=== PATIENT | male | born 1950 | race Caucasian/White ===

== ENCOUNTER 2017-02-13 19:46 | Inpatient (IN) | payer OTHER ==
[~2017-02-13] VITALS: Ht 172.7 cm; Wt 120.2 kg
--- NOTE | ~2017-02-13 | EKG ---
[place] [address] [facility] [place] [address] ELECTROCARDIOGRAM REPORT Name: JADE HARRIS Room #: 303-P ADM IN M.R.#: [id number] Admission: 02/13/17 Attend Phys: Sim Castaneda DO Discharge: Date of : 50 Report #: [id number] THIS REPORT FOR: //name// [facility] ED Test Date: 2017-02-13 Test Time: 19:47:30 Pat Name: JADE HARRIS Department: Room: [facility] Gender: M Time Study Engineer: KKODJOVI : 1950 Requested By: Juan Carlos Palma Order Number: [id number] MD: Andrey Boucher Measurements Intervals [place] Rate: 97 P: 42 IA: 124 QRS: 108 QRSD: 142 T: 26 QT: 387 QTc: 492 Interpretive Statements Probable Sinus rhythm. Baseline artifact limits assessment Rightward axis Probable RVH Compared to ECG 01/17/2015 18:02:47 No significant change was found Electronically Signed On 02-17-2017 9:14:29 CDT by Andrey Boucher [email or web address] <ELECTRONICALLY SIGNED> By: Andrey Boucher MD, [facility] 02/17/1714 46 46 Andrey Boucher MD, [facility] /EPI
[~2017-02-13 19:46] MED LIST: ASPIR-LOW81 MG PO; AUGMENTIN 875875 MG PO; BACTRIM DS TAB1 EACH PO; BACTROBAN CREAM30 G1 TOP; CLORPACTIN WCS-92 GM IRRIG; COLACE100 MG PO; COZAAR 50 MG TA50 MG PO; CYCLOBENZAPRINE5 MG PO; DAILY VITE1 EACH PO; DILAUDID1 MG/1 ML IV PUSH; DIPHENHYDRAM50 MG/M2 IV PUSH; DOXYCYCLINE 10100 MG PO; DULCOLAX5 MG PO; ENOXAPARIN40 MG/0.1 SUBQ; FENTANYL PA25 MCG/HR TRANSDERM; FENTANYL PATCH75 MCG TRANSDERM; FLOMAX0.4 MG PO; FLONASE 0.05%50 MCG NASAL; GLUCOPHAGE1000 MG PO; GLYBURIDE 5 MG T5 M1 PO; INDOMETHACIN 5050 M1 PO; INVOKANA300 MG PO; LIDODERM 5%1 PATC1 TRANSDERM; LIPITOR10 MG PO; LOPRESSOR25 PO; MODAFINIL100 MG PO; MODAFINIL200 MG PO; MYRBETRIQ50 MG PO; MYSOLINE50 MG PO; NEURONTIN 300300 M1 PO; NORCO 10-325 T1 EACH PO; NOVOLOG100 UNIT/1 SUBQ; ONDANSETRON HCL4 M2 IV; ONGLYZA5 MG PO; PIPERACIL-TA3.375 G1 IVPB; PROSCAR 5MG TABL5 MG PO; PROTONIX 440 MG/VIA1 IV; PROZAC20 M1 PO; REGLAN 5 MG TAB5 MG IV; RISPERDAL 3 MG T3 M1 PO; TOVIAZ4 MG PO; TRADJENTA5 MG PO; UNICOMPLEX M TA1 TA1 PO; VALACYCLOVIR500 MG PO; VENLAFAXIN75 MG/1 T1 PO; VIAGRA50 MG PO; VITAMINC500 PO; XANAX 0.5 MG0.5 MG PO; ZOCOR 10 MG TAB10 MG PO
[2017-02-13 19:47] VITALS: BP 126/65
[2017-02-13 20:20] LABS: HEMATOCRIT 38.9 % (42.0-52.0); HEMOGLOBIN 12.7 gm/dL (14.0-18.0); MCH 27.6 pg (26.0-34.0); MCHC 32.6 g/dL (28.0-37.0); MCV 84.5 fL (80.0-100.0); PLATELET COUNT 302 thou/uL (150-400); RBC 4.61 mil/uL (4.50-6.00); RDW 15.2 % (10.5-14.5); WBC 12.7 thou/uL (4.0-11.0)
[2017-02-13 20:21] LABS: MANUAL DIFF YES
[2017-02-13 20:29] LABS: ANION GAP 9 mmol/L (7-16); BUN 19 mg/dL (7-18); CALCIUM 9.5 mg/dL (8.5-10.1); CHLORIDE 102 mmol/L (98-107); CO2 28 mmol/L (21-32); GLUCOSE 131 mg/dL (74-106); SODIUM 139 mmol/L (136-145)
[2017-02-13 20:31] LABS: POTASSIUM 4.7 mmol/L (3.5-5.1)
[2017-02-13 20:41] LABS: ABSOLUTE NEUTROPHILS 9.9 thou/uL (1.4-8.2); ANISOCYTOSIS 1+; TOTAL CELL COUNT 100
[2017-02-13 20:42] LABS: POLYCHROMASIA OCCASIONAL
[2017-02-13 20:44] LABS: ALBUMIN 3.4 g/dL (3.4-5.0); ALKALINE PHOSPHATASE 96 U/L (46-116); SGOT 348 U/L (15-37); SGPT 133 U/L (30-65); TOTAL BILIRUBIN 0.5 mg/dL (<0.1-1.0); TROPONIN-I < 0.04 ng/mL (<0.04-0.07)
[2017-02-13] MEDS ORDERED: LOPRESSOR25 PO (21:12)
[2017-02-13] MEDS ORDERED: FENTANYL 1100 MCG/HR TRANSDERM (21:13)
[2017-02-13] MEDS ORDERED: DICLOFENAC SODI75 MG PO (21:14)
[2017-02-13] MEDS ORDERED: NUVIGIL200 MG PO (21:14)
[2017-02-13 21:17] LABS: ACETAMINOPHEN < 2 ug/mL (10-30); SALICYLATE < 2.8 mg/dL (2.8-20.0)
[2017-02-13] MEDS ORDERED: PROTONIX40 M2 PO (21:26)
[2017-02-13] MEDS ORDERED: GLUCOTROL5 MG PO (21:27)
[2017-02-13 21:55] LABS: ABG SAMPLE TYPE VENOUS; BE(vivo) -0.1 mmol/L (-2 to +3); HCO3 24.7 mmol/L (22.0-26.0); LACTATE 1.67 mmol/L (0.5-2.0); O2(CT) 14.6 mL/dL (15.0-23.0); O2Hb VENOUS 80.6 (65.0-85.0); PCO2 VENOUS 40.7 mmHg (41.0-51.0); PO2 VENOUS 47.1 mmHg (35.0-45.0); STICK SITE LINE; sO2 VENOUS 83.1 % (65.0-85.0)
[2017-02-13 22:37] LABS: URINE BILIRUBIN NEGATIVE (Negative); URINE BLOOD 3+ (Negative); URINE COLOR YELLOW; URINE GLUCOSE-RANDOM* 3+ (Negative); URINE KETONES TRACE (Negative); URINE NITRITE NEGATIVE (Negative); URINE PROTEIN (DIPSTICK) 1+ (Negative); URINE UROBILINOGEN 0.2 E.U./dl (0.2-1.0)
[2017-02-13 22:45] LABS: AMP/METHAMP Negative (Negative); BARBITURATES POSITIVE (Negative); BENZODIAZEPINES Negative (Negative); CASTS None Seen /LPF (None Seen); COCAINE Negative (Negative); METHADONE Negative (Negative); OPIATES Negative (Negative); PCP Negative (Negative); SQUAMOUS None Seen /LPF (0-3); THC Negative (Negative)
[2017-02-13 22:46] LABS: BACTERIA 1-9 Few /HPF (None Seen); CRYSTALS None Seen /LPF (None Seen); URINE RBC 3-10 Few /HPF (0-2); URINE WBC 0-5 Rare /HPF (0-5)
[2017-02-13 23:04] VITALS: BP 133/59
[2017-02-14 04:15] VITALS: BP 138/67
[2017-02-14 07:02] LABS: ALBUMIN 2.9 g/dL (3.4-5.0); CALCIUM 8.5 mg/dL (8.5-10.1); CREATININE 0.9 mg/dL (0.7-1.3); TOTAL BILIRUBIN 0.4 mg/dL (<0.1-1.0); TOTAL PROTEIN 6.1 g/dL (6.4-8.2)
[2017-02-14 07:05] LABS: POTASSIUM 3.5 mmol/L (3.5-5.1)
[2017-02-14 07:48] VITALS: BP 151/63
[2017-02-14 15:53] VITALS: BP 154/88
[2017-02-14 19:30] VITALS: BP 137/60
[2017-02-14 23:24] VITALS: BP 130/64
[2017-02-15 03:29] VITALS: BP 127/66
[2017-02-15 06:05] LABS: ALBUMIN 2.9 g/dL (3.4-5.0); CALCIUM 8.7 mg/dL (8.5-10.1); CREATININE 0.8 mg/dL (0.7-1.3); POTASSIUM 3.8 mmol/L (3.5-5.1); TOTAL BILIRUBIN 0.3 mg/dL (<0.1-1.0); TOTAL PROTEIN 6.1 g/dL (6.4-8.2)
[2017-02-15 07:35] VITALS: BP 155/77
[2017-02-15 15:49] VITALS: BP 152/77
[2017-02-15 18:06] LABS: HEPATITIS C VIRUS AB <0.1 (0.0-0.9)
[2017-02-15 19:28] VITALS: BP 155/74
[2017-02-16 05:10] VITALS: BP 172/82
[2017-02-16 06:49] LABS: ALBUMIN 2.9 g/dL (3.4-5.0); CALCIUM 8.3 mg/dL (8.5-10.1); CREATININE 0.8 mg/dL (0.7-1.3); POTASSIUM 3.8 mmol/L (3.5-5.1); TOTAL BILIRUBIN 0.2 mg/dL (<0.1-1.0); TOTAL PROTEIN 6.2 g/dL (6.4-8.2)
[2017-02-16 08:08] VITALS: BP 141/75
[2017-02-16 15:44] VITALS: BP 149/78
[2017-02-16 19:28] VITALS: BP 165/81
[2017-02-17 04:13] LABS: GLYCOHEMOGLOBIN (HGB A1C) 5.9 % (4.8-5.6)
[2017-02-17 04:53] VITALS: BP 165/88
[2017-02-17 05:02] LABS: ABSOLUTE NEUTROPHILS 5.4 thou/uL (1.4-8.2); EOSINOPHILS 6.5 % (0.0-3.0); HEMATOCRIT 34.9 % (42.0-52.0); HEMOGLOBIN 11.6 gm/dL (14.0-18.0); LYMPHOCYTES 17.5 % (24.0-44.0); MCH 28.1 pg (26.0-34.0); MCHC 33.1 g/dL (28.0-37.0); MCV 84.8 fL (80.0-100.0); MONOCYTES 9.4 % (1.0-8.0); PLATELET COUNT 269 thou/uL (150-400); POLYS 65.6 % (36.0-66.0); RBC 4.12 mil/uL (4.50-6.00); WBC 8.3 thou/uL (4.0-11.0)
[2017-02-17 05:05] LABS: MANUAL DIFF NO
[2017-02-17 05:31] LABS: CALCIUM 8.9 mg/dL (8.5-10.1); CREATININE 0.7 mg/dL (0.7-1.3); MAGNESIUM 1.7 mg/dL (1.8-2.4); TOTAL BILIRUBIN 0.3 mg/dL (<0.1-1.0); TOTAL PROTEIN 6.2 g/dL (6.4-8.2)
[2017-02-17 07:30] VITALS: BP 134/84
[2017-02-17 11:01] VITALS: BP 134/84
== END 2017-02-17 12:27 | disposition home or self-care (01) | DRG 558 ==
LOC: ER 19:46 → 3N 22:14 → EROBS 22:14 → 3N 22:54 → EROBS 22:54 → 3N 22:57
PROVIDERS: Emergency Medicine; Internal Medicine; Internal Medicine Endocrinology, Diabetes & Metabolism; Nurse Practitioner Acute Care
DX: M62.82 Rhabdomyolysis (principal); E11.9 Type 2 diabetes mellitus without complications; I10 Essential (primary) hypertension; I25.10 Atherosclerotic heart disease of native coronary artery without angina pectoris; R74.0 Nonspecific elevation of levels of transaminase and lactic acid dehydrogenase [LDH]; F41.9 Anxiety disorder, unspecified; F32.9 Major depressive disorder, single episode, unspecified; G89.29 Other chronic pain; M54.9 Dorsalgia, unspecified; Z95.1 Presence of aortocoronary bypass graft; Z79.899 Other long term (current) drug therapy; Z88.8 Allergy status to other drugs, medicaments and biological substances; Z90.49 Acquired absence of other specified parts of digestive tract; Z82.49 Family history of ischemic heart disease and other diseases of the circulatory system; Z80.9 Family history of malignant neoplasm, unspecified
CPT/HCPCS: 10096

== ENCOUNTER 2017-02-28 17:52 | Inpatient (IN) | payer OTHER ==
[~2017-02-28] VITALS: Ht 172.7 cm; Wt 122.5 kg
[~2017-02-28 17:52] MED LIST changes: +DICLOFENAC SODI75 MG PO; +FENTANYL 1100 MCG/HR TRANSDERM; +GLUCOTROL5 MG PO; +NUVIGIL200 MG PO; +PROTONIX40 M2 PO
[2017-02-28 17:54] VITALS: BP 123/65
[2017-02-28 18:35] LABS: ABSOLUTE NEUTROPHILS 11.4 thou/uL (1.4-8.2); BASOPHILS 0.9 % (0.0-2.0); HEMATOCRIT 38.5 % (42.0-52.0); HEMOGLOBIN 12.7 gm/dL (14.0-18.0); LYMPHOCYTES 9.6 % (24.0-44.0); MCH 27.7 pg (26.0-34.0); MCHC 32.8 g/dL (28.0-37.0); MCV 84.2 fL (80.0-100.0); MONOCYTES 9.5 % (1.0-8.0); PLATELET COUNT 374 thou/uL (150-400); RBC 4.57 mil/uL (4.50-6.00); RDW 15.6 % (10.5-14.5); WBC 14.4 thou/uL (4.0-11.0)
[2017-02-28 18:36] LABS: MANUAL DIFF NO
[2017-02-28 18:42] LABS: CALCIUM 9.1 mg/dL (8.5-10.1); CREATININE 1.2 mg/dL (0.7-1.3); POTASSIUM 4.2 mmol/L (3.5-5.1)
[2017-02-28 19:46] LABS: URINE BILIRUBIN NEGATIVE (Negative); URINE BLOOD 1+ (Negative); URINE COLOR YELLOW; URINE GLUCOSE-RANDOM* 3+ (Negative); URINE KETONES NEGATIVE (Negative); URINE LEUKOCYTES-REFLEX NEGATIVE (Negative); URINE PROTEIN (DIPSTICK) NEGATIVE (Negative); URINE SPECIFIC GRAVITY 1.015 (1.003-1.035); URINE UROBILINOGEN 0.2 E.U./dl (0.2-1.0)
[2017-02-28 19:59] LABS: SQUAMOUS None Seen /LPF (0-3)
[2017-02-28 20:00] LABS: CASTS None Seen /LPF (None Seen); CRYSTALS None Seen /LPF (None Seen); URINE RBC 0-2 Rare /HPF (0-2); URINE WBC-REFLEX 0-5 Rare /HPF (0-5)
[2017-02-28 22:48] VITALS: BP 171/81
[2017-02-28 22:51] VITALS: BP 171/81
[2017-03-01 03:35] VITALS: BP 139/70
[2017-03-01 07:47] LABS: ALBUMIN 3.2 g/dL (3.4-5.0); ALKALINE PHOSPHATASE 97 U/L (46-116); DIRECT BILIRUBIN 0.1 mg/dL (<0.1-0.3); MAGNESIUM 1.8 mg/dL (1.8-2.4); SGOT 125 U/L (15-37); SGPT 95 U/L (30-65); TOTAL BILIRUBIN 0.6 mg/dL (<0.1-1.0); TROPONIN-I < 0.04 ng/mL (<0.04-0.07)
[2017-03-01 08:53] VITALS: BP 146/74
[2017-03-01 17:29] VITALS: BP 128/53
[2017-03-01 19:12] VITALS: BP 129/66
[2017-03-02 03:40] VITALS: BP 127/70
[2017-03-02 05:48] LABS: ABSOLUTE NEUTROPHILS 6.8 thou/uL (1.4-8.2); BASOPHILS 0.6 % (0.0-2.0); EOSINOPHILS 3.7 % (0.0-3.0); HEMATOCRIT 36.6 % (42.0-52.0); HEMOGLOBIN 11.6 gm/dL (14.0-18.0); LYMPHOCYTES 16.8 % (24.0-44.0); MCH 27.1 pg (26.0-34.0); MCHC 31.8 g/dL (28.0-37.0); MCV 85.2 fL (80.0-100.0); MONOCYTES 11.8 % (1.0-8.0); PLATELET COUNT 359 thou/uL (150-400); POLYS 67.1 % (36.0-66.0); RBC 4.29 mil/uL (4.50-6.00); RDW 15.4 % (10.5-14.5); WBC 10.1 thou/uL (4.0-11.0)
[2017-03-02 05:51] LABS: MANUAL DIFF NO
[2017-03-02 05:52] LABS: CALCIUM 8.7 mg/dL (8.5-10.1)
[2017-03-02 07:35] VITALS: BP 134/64
[2017-03-02 15:30] VITALS: BP 127/74
[2017-03-02 19:05] VITALS: BP 130/70
[2017-03-03 04:24] LABS: EOSINOPHILS 5.1 % (0.0-3.0); HEMOGLOBIN 11.5 gm/dL (14.0-18.0); LYMPHOCYTES 21.9 % (24.0-44.0); MCH 28.5 pg (26.0-34.0); MCHC 32.9 g/dL (28.0-37.0); MCV 86.5 fL (80.0-100.0); PLATELET COUNT 320 thou/uL (150-400); RBC 4.05 mil/uL (4.50-6.00); RDW 15.6 % (10.5-14.5); WBC 8.1 thou/uL (4.0-11.0)
[2017-03-03 04:30] VITALS: BP 120/64
[2017-03-03 04:33] LABS: CREATININE 0.9 mg/dL (0.7-1.3); POTASSIUM 4.4 mmol/L (3.5-5.1)
[2017-03-03 04:34] LABS: MANUAL DIFF NO
[2017-03-03 08:44] VITALS: BP 147/90
[2017-03-03 18:21] VITALS: BP 106/54
[2017-03-03 20:00] VITALS: BP 124/59
[2017-03-04 04:00] VITALS: BP 139/63
[2017-03-04 04:53] LABS: ABSOLUTE NEUTROPHILS 5.2 thou/uL (1.4-8.2); BASOPHILS 0.8 % (0.0-2.0); EOSINOPHILS 4.9 % (0.0-3.0); HEMATOCRIT 33.9 % (42.0-52.0); HEMOGLOBIN 11.1 gm/dL (14.0-18.0); LYMPHOCYTES 18.5 % (24.0-44.0); MCH 28.1 pg (26.0-34.0); MCHC 32.9 g/dL (28.0-37.0); MCV 85.4 fL (80.0-100.0); MONOCYTES 10.3 % (1.0-8.0); PLATELET COUNT 315 thou/uL (150-400); POLYS 65.5 % (36.0-66.0); RBC 3.97 mil/uL (4.50-6.00); RDW 15.3 % (10.5-14.5)
[2017-03-04 04:57] LABS: MANUAL DIFF NO
[2017-03-04 04:59] LABS: CALCIUM 8.5 mg/dL (8.5-10.1); CREATININE 1.2 mg/dL (0.7-1.3); POTASSIUM 4.6 mmol/L (3.5-5.1)
[2017-03-04 08:00] VITALS: BP 144/71
[2017-03-04] MEDS ORDERED: MACROBID 100 M100 M2 PO (08:41)
[2017-03-04 16:00] VITALS: BP 124/55
[2017-03-04 19:35] VITALS: BP 121/58
[2017-03-05 04:11] VITALS: BP 136/60
[2017-03-05 08:38] VITALS: BP 118/62
== END 2017-03-05 11:15 | DRG 871 ==
LOC: ER 17:52 → 4N 21:49 → EROBS 21:49 → 4N 23:21 → 4S 03-03 11:20
PROVIDERS: Emergency Medicine; Family Medicine; Nurse Practitioner Acute Care
DX: A41.9 Sepsis, unspecified organism (principal); J18.9 Pneumonia, unspecified organism; J96.20 Acute and chronic respiratory failure, unspecified whether with hypoxia or hypercapnia; L03.116 Cellulitis of left lower limb; L03.115 Cellulitis of right lower limb; N39.0 Urinary tract infection, site not specified; E11.9 Type 2 diabetes mellitus without complications; I10 Essential (primary) hypertension; G89.29 Other chronic pain; M54.9 Dorsalgia, unspecified; R23.0 Cyanosis; I25.10 Atherosclerotic heart disease of native coronary artery without angina pectoris; Z95.1 Presence of aortocoronary bypass graft; Z88.6 Allergy status to analgesic agent; Z82.49 Family history of ischemic heart disease and other diseases of the circulatory system; Z80.9 Family history of malignant neoplasm, unspecified; Z87.891 Personal history of nicotine dependence; Z79.82 Long term (current) use of aspirin; Z79.899 Other long term (current) drug therapy; W18.39XA Other fall on same level, initial encounter; Y93.89 Activity, other specified; Y92.89 Other specified places as the place of occurrence of the external cause; Y99.8 Other external cause status
CPT/HCPCS: 10091; 10102

== ENCOUNTER 2017-03-09 03:50 | Emergency (ER) | payer OTHER ==
[~2017-03-09] VITALS: Ht 172.7 cm; Wt 122.5 kg
--- NOTE | ~2017-03-09 | EKG ---
[place] [address] [facility] [place] [employer] [address] ELECTROCARDIOGRAM REPORT Name: AMEENAJADE DAVILA [id number] Admission: 03/09/17 Attend Phys: Discharge: 03/09/17 Date of : 50 Report #: [id number] THIS REPORT FOR: //name// [facility] ED Test Date: 2017-03-09 Test Time: 04:12:35 Pat Name: JADE HARRIS Department: Room: Gender: Contract Management Specialist: HIEN : 1950 Requested By: Juan Carlos Palma Order Number: [id number] MD: Ever Silvestre Measurements Intervals [place] Rate: 69 P: 42 ID: 129 QRS: 79 QRSD: 145 T: 27 QT: 418 QTc: 448 Interpretive Statements Sinus rhythm Right bundle branch block Compared to ECG 02/13/2017 19:47:30 Right bundle-branch block now present Right-axis deviation no longer present Electronically Signed On 03-09-2017 14:05:26 CDT by Ever Silvestre [email or web address] <ELECTRONICALLY SIGNED> By: Ever Silvestre MD 03/09/17 1405 0412 0412 Ever Silvestre MD /LOLI
[~2017-03-09 03:50] MED LIST changes: +MACROBID 100 M100 M2 PO
[2017-03-09] MEDS ORDERED: MACROBID 100 M100 M2 PO (03:59)
[2017-03-09 04:08] LABS: URINE BILIRUBIN NEGATIVE (Negative); URINE BLOOD NEGATIVE (Negative); URINE COLOR YELLOW; URINE GLUCOSE-RANDOM* 3+ (Negative); URINE KETONES TRACE (Negative); URINE NITRITE NEGATIVE (Negative); URINE PROTEIN (DIPSTICK) NEGATIVE (Negative); URINE UROBILINOGEN 0.2 E.U./dl (0.2-1.0)
[2017-03-09 04:22] LABS: EOSINOPHILS 4.1 % (0.0-3.0); HEMATOCRIT 35.3 % (42.0-52.0); HEMOGLOBIN 11.4 gm/dL (14.0-18.0); LYMPHOCYTES 18.5 % (24.0-44.0); MCH 27.5 pg (26.0-34.0); MCHC 32.4 g/dL (28.0-37.0); MCV 85.1 fL (80.0-100.0); MONOCYTES 11.6 % (1.0-8.0); PLATELET COUNT 300 thou/uL (150-400); POLYS 64.8 % (36.0-66.0); RBC 4.15 mil/uL (4.50-6.00); RDW 15.4 % (10.5-14.5); WBC 9.3 thou/uL (4.0-11.0)
[2017-03-09 04:26] LABS: MANUAL DIFF NO
[2017-03-09 04:31] LABS: ANION GAP 6 mmol/L (7-16); BUN 25 mg/dL (7-18); CALCIUM 8.8 mg/dL (8.5-10.1); CHLORIDE 104 mmol/L (98-107); CO2 27 mmol/L (21-32); CREATININE 1.4 mg/dL (0.7-1.3); GLUCOSE 99 mg/dL (74-106); POTASSIUM 4.6 mmol/L (3.5-5.1); SODIUM 137 mmol/L (136-145)
[2017-03-09 04:40] LABS: ALBUMIN 3.3 g/dL (3.4-5.0); ALKALINE PHOSPHATASE 109 U/L (46-116); MAGNESIUM 1.6 mg/dL (1.8-2.4); SGOT 31 U/L (15-37); SGPT 58 U/L (30-65); TOTAL BILIRUBIN 0.2 mg/dL (<0.1-1.0); TOTAL PROTEIN 6.5 g/dL (6.4-8.2); TROPONIN-I < 0.04 ng/mL (<0.04-0.07)
== END 2017-03-09 06:58 ==
LOC: ER 03:50
PROVIDERS: Emergency Medicine
DX: R41.82 Altered mental status, unspecified (principal); T50.905A Adverse effect of unspecified drugs, medicaments and biological substances, initial encounter; Y92.89 Other specified places as the place of occurrence of the external cause; E11.9 Type 2 diabetes mellitus without complications; I10 Essential (primary) hypertension; I25.10 Atherosclerotic heart disease of native coronary artery without angina pectoris; Z95.1 Presence of aortocoronary bypass graft; Z98.890 Other specified postprocedural states; Z88.5 Allergy status to narcotic agent; Z88.8 Allergy status to other drugs, medicaments and biological substances; E83.42 Hypomagnesemia

== ENCOUNTER 2017-08-13 12:03 | Inpatient (IN) | payer OTHER ==
[~2017-08-13] VITALS: Ht 172.7 cm; Wt 119.3 kg
--- NOTE | ~2017-08-13 | HC ---
[facility] [place] [address] CONSULTATION Name: JADE HARRIS Room #: 353-P [facility] IN ..#: [id number] Admission: 08/13/17 Attend Phys: Lam Oliver MD Discharge: Date of : 50 Report #: [id number] THIS REPORT FOR: //name// CC: Gurmeet Oliver DATE OF SERVICE: 08/18/2017 REFERRING PHYSICIAN: Lam Oliver MD. REASON FOR REFERRAL: Acute respiratory failure. HISTORY OF PRESENT ILLNESS: The patient is a 66-year-old white male who was admitted on 08/13/2017 with generalized weakness. He has been on BiPAP since admission. A pulmonary consultation was requested regarding noninvasive positive pressure ventilation. The daughters are present. The patient is currently on BiPAP. Most of the history is obtained from the daughter. According to the family, the patient has been ill for some time. The patient was felt to have Parkinson's disease along with multiple back surgeries. As a result, his overall health has been declining. According to family, BiPAP was placed around Thursday night and has not been taken off since. Currently, he is being treated of generalized weakness, frequent falls, along with tremors due to his Parkinson's. The patient also has been noncompliant with his Parkinson's medications. With his recurrent falls, he was also found to have rhabdomyolysis. PAST MEDICAL HISTORY: Notable for long history of Parkinson's disease with noncompliance to medication, coronary artery disease, status post coronary bypass surgery, chronic back pain, status post prior back surgery x 3, hypertension, diabetes mellitus, chronic back pain as mentioned above. PAST SURGICAL HISTORY: As mentioned above including tonsillectomy, throat surgery and bilateral knee surgery. ALLERGIES: GABAPENTIN, MORPHINE, REACTIONS NOT SPECIFIED. HOME MEDICATIONS: Reviewed, is in the MAR. He is on multiple medications. This include fentanyl 100 mcg patch, Nuvigil, Xanax, Neurontin, venlafaxine, Cozaar, Flomax, Prozac, Glucophage, aspirin, Risperdal, Proscar, Dulcolax, ____, Myrbetriq, Flexeril, Mysoline, vitamin, [place], Lopressor, Protonix, Voltaren. [address] [address] CONSULTATION Name: JADE HARRIS Room #: 353-P [facility] IN ..#: [id number] Admission: 08/13/17 Attend Phys: Lam Oliver MD Discharge: Date of : 50 Report #: [id number] FAMILY HISTORY: Noncontributory. SOCIAL HISTORY: He has smoked in the past, but quit many years ago. He is many times and . No active . He has 4 children. MEDICAL DIRECTIVE: According to records, he is a DNR. REVIEW OF SYSTEMS: Deferred as the patient is currently on BiPAP. PHYSICAL EXAMINATION: GENERAL: He is arousable, but appears quite weak. He opens his eyes. VITAL SIGNS: Temperature 98.7 degrees Fahrenheit, pulse is 110, respiratory rate is 18, blood pressure 182/92 mmHg, saturation 97%. HEENT: Normocephalic, atraumatic. NECK: Supple without lymphadenopathy or thyromegaly. CHEST: Breath sounds are decreased anteriorly due to poor effort. No obvious rales or wheezes. CARDIOVASCULAR: Normal S1, S2. There is no murmur, rub or gallop. There is no JVD. There is no carotid bruit. Pulses are 2+/4+ bilaterally. ABDOMEN: Moderately obese, soft, nontender, no organomegaly or masses felt. GENITOURINARY: Deferred. RECTAL: Deferred. EXTREMITIES: No cyanosis, clubbing, edema. LABORATORY DATA: Portable chest x-ray shows small lung volumes, right hemidiaphragm is elevated with atelectasis. A 2D echocardiogram was grossly unremarkable, ejection fraction 55%, no significant valvular heart disease. MRI of the head shows no acute intracranial process with stable atrophy and chronic small vessel ischemic changes. CT head, no acute changes. DATA: Sodium 150, potassium 3.7, chloride 111, CO2 of 31, BUN is 21, creatinine is 1.0. Liver function enzymes are mildly elevated. WBC 14,700, hemoglobin 12.3, platelets are normal. Albumin is 2.9. Arterial blood gas revealed pH 7.43, pCO2 of 47 on FiO2 60%. IMPRESSION: 1. Acute hypoxic respiratory failure in this 66-year-old white male with multiple medical problems. Chest x-ray shows small lung volumes, elevated right hemidiaphragm. No obvious infiltrate is noted. Suspect acute hypoxic respiratory failure related to generalized debility and weakness due to Parkinson's disease and other comorbid conditions. 2. Progressive weakness and falls. [facility] [address] [place] [address] CONSULTATION Name: JADE HARRIS Room #: 353-P [facility] IN M.R.#: [id number] Admission: 08/13/17 Attend Phys: Lam Oliver MD Discharge: Date of : 50 Report #: [id number] 3. Bipolar disorder. 4. Parkinson's disease which is contributing to progressive weakness. 5. Chronic back pain status post multiple back surgeries. 6. Coronary artery disease with past coronary artery bypass surgery. RECOMMENDATION AND DISCUSSION: The patient apparently has been on BiPAP since close admission. He is hypoxic. Chest x-ray as mentioned above. Suspect his hypoxia is related to generalized weakness leading to hypoventilation. He has mild hypercarbia based on a recent arterial blood gas. The patient does have a living will and has not desired to be on life support. This was discussed with the patient's oldest daughter. She understands that he desires a DNR. For now, we will continue noninvasive positive pressure ventilation, but concerns for local complications such as skin necrosis around the mask. We cannot continue BiPAP indefinitely. This was discussed with the family, they voiced understanding. My recommendation is to consider discontinuing BiPAP and keep saturation 90%. If the patient's condition deteriorates, would consider comfort measures. We will revisit tomorrow. Thank you for this consultation. <ELECTRONICALLY SIGNED> By: Abhijit Bruce MD 08/24/17 1409 1803 0056 Abhijit Bruce MD /nt
--- NOTE | ~2017-08-13 | HC ---
[facility] [place] [address] CONSULTATION Name: JADE HARRIS Room #: 353-P [facility] IN ..#: [id number] Admission: 08/13/17 Attend Phys: Lam Oliver MD Discharge: Date of : 50 Report #: [id number] THIS REPORT FOR: //name// CC: Gurmeet Oliver DATE OF SERVICE: 08/17/2017 REASON FOR CONSULTATION: I was asked to evaluate the patient concerning fever, leukocytosis and respiratory failure. HISTORY OF PRESENT ILLNESS: The patient is a 66-year-old with Parkinson's dementia, coronary artery disease who has been hospitalized after recurring falls. Admission on 08/13/2017. Subsequently, developed respiratory failure last evening with a temperature of 101 degrees. He has been tachycardic. Now, on BiPAP. The patient is alert and reports malaise and myalgias. No pleuritic chest pain. No hemoptysis. Minimal sputum production. Minimal cough. No nausea, vomiting or diarrhea. He has an indwelling Retana catheter. ALLERGIES: GABAPENTIN AND MORPHINE. MEDICATIONS: Now, on Zosyn. Other meds as noted previously. PAST MEDICAL HISTORY: Diabetes, chronic back pain, coronary artery disease, coronary bypass grafting, hypertension, sacral wound with incision and drainage, previous back surgeries, tonsillectomy, rhabdomyolysis, bilateral knee surgeries. FAMILY HISTORY: Cancer, heart disease, hypertension. SOCIAL HISTORY: Past smoker, no significant alcohol intake. Lives at home and has his daughter and granddaughter who had been living with him. REVIEW OF SYSTEMS: No nausea, vomiting or diarrhea. Indwelling Retana catheter. No rash or decubiti. PHYSICAL EXAMINATION: VITAL SIGNS: He is afebrile. Maximum temperature 100.9 degrees along with tachycardia at 100-125 beats per minute. Blood pressure has been stable. BiPAP in place. The patient was alert, generally weak. NECK: Supple. LUNGS: Coarse breath sounds bilaterally, no consolidation. HEART: Regular, tachycardic. ABDOMEN: Soft, obese and nontender. No hepatosplenomegaly or mass. EXTREMITIES: 1+ peripheral edema. NEUROLOGIC: Otherwise nonfocal. [facility] [address] [place] [address] CONSULTATION Name: JADE HARRIS Room #: 353-P ADM IN .R.#: [id number] Admission: 08/13/17 Attend Phys: Lam Oliver MD Discharge: Date of : 50 Report #: [id number] LABORATORY STUDIES: Chest x-ray yesterday showed right lower lobe atelectasis. CT scan of the head and neck after this did show a right upper lobe infiltrate. Blood cultures are negative to date. BNP was 1000. Urinalysis unremarkable. On 15 liters, his ABG showed pO2 of 59, pCO2 of 45, pH 7.4. Sodium 146, potassium 3.6, creatinine 1, hemoglobin 12.4, platelet count 341,000, white count 17,000, 84% segs, 6% lymphs. IMPRESSION: A 66-year-old with recent falls. Apparently, has mild dementia, coronary artery disease and some Parkinson's disease with leukocytosis, respiratory failure and tachycardia. I am suspecting aspiration pneumonia would be most likely. So far, no evidence of urinary tract infection. Blood cultures remain negative. RECOMMENDATIONS: Agree with current antibiotic program. Check sputum culture. MRSA screen. Repeat chest x-ray. Aspiration precautions. We will continue current respiratory management. Reassess tomorrow following chest x-ray. <ELECTRONICALLY SIGNED> By: Juan Carlos Evans MD 08/18/17 1830 1427 1806 Juan Carlos Evans MD /nt
--- NOTE | ~2017-08-13 | 2DMMODE ---
[facility] [address] [email or web address] [address] 2 D/M-MODE ECHOCARDIOGRAM Name: JADE HARRIS Room #: 353-P [facility] IN ..#: [id number] Admission: 08/13/17 Attend Phys: Lam Oliver MD Discharge: Date of : 50 Date of Service: 08/18/17 1049 Report #: [id number] THIS REPORT FOR: //name// APPROVED REPORT Study performed: 08/18/2017 09:24:32 EXAM: Comprehensive 2D, Doppler, and color-flow Echocardiogram Patient Location: Bedside Room #: 353 Status: routine BSA: 2.32 HR: 110 bpm BP: 161/91 mmHg Rhythm: Tachycardia Other Information Study Quality: Technically Difficult Technically limited study due to body habitus, inability to position patient, patient on Bipap machine, uncooperative patient. Indications Congestive Heart Failure Diabetes Dyspnea CAD Tachycardia Hypertension/HDD Echo Enhancing Agent Indication: Endocardial border delineation Agent(s) / Amount(s) Used: Optison 5 cc 2D Dimensions LVEF(%): 42.23 (>50%) IVSd: 12.35 (7-11mm) LVOT Diam: 23.04 (18-24mm) LVDd: 53.96 mm PWd: 12.96 (7-11mm) Ascending Ao: 34.57 (22-36mm) LVDs: 42.65 (25-40mm) Aortic Root: 36.63 mm IVC: 11.00 mm Gaytan's LVEF: 42.23 % Volumes Left Atrial Volume (Systole) [facility] [address] [place] [address] 2 D/M-MODE ECHOCARDIOGRAM Name: JADE HARRIS Room #: 353-P [facility] IN ..#: [id number] Admission: 08/13/17 Attend Phys: Lam Oliver MD Discharge: Date of : 50 Date of Service: 08/18/17 1049 Report #: [id number] Single Plane 4CH: 24.85 mL Single Plane 2CH: 33.19 mL LA ESV Index: 14.00 mL/m2 Aortic Valve AoV Peak Eldon.: 1.19 m/s AO Peak Gr.: 5.67 mmHg LVOT Max P.42 mmHg LVOT Max V: 1.05 m/s RESHMA Vmax: 3.68 cm2 Mitral Valve E/A Ratio: 0.5 MV Decel. Time: 158.19 ms MV E Max Eldon.: 0.44 m/s MV A Eldon.: 0.86 m/s MV PHT: 45.88 ms IVRT: 143.02 ms Pulmonary Valve PV Peak Eldon.: 1.21 m/s PV Peak Gr.: 5.87 mmHg Tricuspid Valve RAP Estimate: 5.00 mmHg Left Ventricle The left ventricle is normal size. There is normal left ventricular wall thickness. The overall left ventricular systolic function appears normal. LVEF is 55%. Transmitral Doppler flow pattern suggests impaired LV relaxation. Right Ventricle Right ventricle is not well visualized. Atria The left atrium size is normal. The right atrium size is normal. Aortic Valve Aortic valve is mildly calcified. No aortic regurgitation is present. There is no aortic valvular stenosis. Mitral Valve The mitral valve is mildly thickened. Trace mitral regurgitation. No evidence of mitral valve stenosis. Tricuspid Valve The tricuspid valve is normal in structure. There is no tricuspid [facility] [address] [place] [address] 2 D/M-MODE ECHOCARDIOGRAM Name: JADE HARRIS Room #: 353-P [facility] IN ..#: [id number] Admission: 08/13/17 Attend Phys: Lam Oliver MD Discharge: Date of : 50 Date of Service: 08/18/17 1049 Report #: [id number] valve regurgitation noted. Unable to assess PA pressure. Pulmonic Valve The pulmonary valve is normal in structure. Trace to mild pulmonic regurgitation. Great Vessels The aortic root is normal in size. IVC is normal in size and collapses >50% with inspiration. Pericardium There is no pericardial effusion. <Conclusion> The left ventricle is normal size. LVEF is 55%. Right ventricle is not well visualized. Aortic valve is mildly calcified. No aortic regurgitation is present. There is no aortic valvular stenosis. The mitral valve is mildly thickened. Trace mitral regurgitation. No evidence of mitral valve stenosis. The tricuspid valve is normal in structure. There is no tricuspid valve regurgitation noted. Unable to assess PA pressure. The pulmonary valve is normal in structure. Trace to mild pulmonic regurgitation. There is no pericardial effusion. <ELECTRONICALLY SIGNED> By: Anselmo Banegas MD 08/18/17 1049 1049 1049 Anselmo Banegas MD /INF
--- NOTE | ~2017-08-13 | EKG ---
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: belkis : 1950 Requested By: Lam Oliver Order Number: [id number] MD: Andrey Boucher Measurements Intervals [place] Rate: 102 P: 50 WI: 117 QRS: 89 QRSD: 127 T: 17 QT: 366 QTc: 477 Interpretive Statements Sinus tachycardia Right bundle branch block Baseline wander in lead(s) I,II,aVR Compared to ECG 08/13/2017 12:20:31 No significant change was found Electronically Signed On 08-17-2017 7:48:07 FILLER BLOCK INSERTER REMOVER by Andrey Boucher [email or web address] <ELECTRONICALLY SIGNED> By: Andrey Boucher MD, [facility] 08/17/17 0748 1658 1658 Andrey Boucher MD, [facility] /EPI
--- NOTE | ~2017-08-13 | EKG ---
[address] [address] ELECTROCARDIOGRAM REPORT Name: JADE HARRIS Room #: 353-P ADM IN M.R.#: [id number] Admission: 08/13/17 Attend Phys: Lam Oliver MD Discharge: Date of : 50 Report #: [id number] THIS REPORT FOR: //name// [facility] Test Date: 2017-08-17 Test Time: 10:57:02 Pat Name: JADE HARRIS Department: Room: 353 P Gender: M Public Health Professor: Aleah MCHUGH : 1950 Requested By: Lam Oliver Order Number: [id number] MD: Ever Silvestre Measurements Intervals [place] Rate: 115 P: 51 AK: 110 QRS: 96 QRSD: 127 T: 16 QT: 353 QTc: 489 Interpretive Statements Sinus tachycardia RBBB and LPFB Electronically Signed On 08-17-2017 15:06:56 CONSULTING SALES EXECUTIVE by Ever Silvestre [email or web address] <ELECTRONICALLY SIGNED> By: Ever Silvestre MD 08/17/17 1506 1057 1057 MD LUCY Bass
--- NOTE | ~2017-08-13 | EKG ---
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 Worker: [facility] : 1950 Requested By: Marlene Sharp Order Number: [id number] MD: Andrey Boucher Measurements Intervals [place] Rate: 99 P: 47 [place]: 103 QRS: 73 QRSD: 141 T: 16 QT: 391 QTc: 502 Interpretive Statements Sinus rhythm Right bundle branch block Compared to ECG 03/09/2017 04:12:35 No significant change was found Electronically Signed On 08-14-2017 8:19:49 ASPARAGUS CUTTER by Andrey Boucher [email or web address] <ELECTRONICALLY SIGNED> By: Andrey Boucher MD, [facility] 08/14/17 0819 1220 1220 Andrey Boucher MD, [facility] /EPI
--- NOTE | ~2017-08-13 | HC ---
[facility] [place] [address] CONSULTATION Name: JADE HARRIS Room #: 353-P [facility] IN ..#: [id number] Admission: 08/13/17 Attend Phys: Lam Oliver MD Discharge: Date of : 50 Report #: [id number] THIS REPORT FOR: //name// CC: Gurmeet Oliver DATE OF SERVICE: 08/13/2017 HISTORY OF PRESENT ILLNESS: This is a 66-year-old male patient who is not able to provide any reliable history. The patient is admitted with what looks like generalized weakness. He also had some diarrhea and this was going on for sometime, history is not very clear in that regard. His weakness was severe and is going to get evaluation by PT and OT. The patient has fallen down. His CPK is high when he came in. REVIEW OF SYSTEMS: Indicate that has a history of diabetes as well as hypertension. He lives with his 12-year-old daughter. He does not need to take any medication for any chronic condition like Parkinson disease. He had a CT scan of the head which was unremarkable. He has increased white count. The cause that is unknown. He has tachycardia. At one time, he had low magnesium. I carried out his 14-point review of system and this was his relevant 14-point review of system. PAST MEDICAL HISTORY: Negative for according to him any memory disturbances. FAMILY HISTORY: Unremarkable. SOCIAL HISTORY: Lives with his a 12-year-old daughter. PHYSICAL EXAMINATION: NEUROLOGICAL: Indicate he is alert. He is responsive. He can follow simple commands. His cranial nerve examination 2 through 12 looks mostly unremarkable. He moves all 4 extremities but appeared to be weak. His reflexes are somewhat diminished. His position sense looks intact. CARDIAC: Examination is unremarkable. RESPIRATORY: Examination showed no respiratory difficulties. EXTREMITIES: Pulses are difficult to feel. GENERAL: He is a very well developed individual. HEENT: His hearing and vision looks adequate. VITAL SIGNS: His blood pressure is 150/78, respirations 18, pulse is 108 and temperature is 97.8. LABORATORY DATA: His white count is high at 18.3. So, his CPK and his liver functions are abnormal. His cholesterol is pretty significantly abnormal. RADIOLOGICAL DATA: CT scan was reviewed, which was unremarkable. [place] [id number] CONSULTATION Name: JADE HARRIS Room #: 353-P [facility] IN ..#: [id number] Admission: 08/13/17 Attend Phys: Lam Oliver MD Discharge: Date of : 50 Report #: [id number] IMPRESSION: This patient is having generalized weakness, which is probably because of systemic etiologies. He indicates he had some diarrhea and he has multiple abnormalities. We are limited in the workup, we can do because we cannot do an EMG in this patient and hospital policy does not allow us to order acetylcholine receptor antibodies as an inpatient. RECOMMENDATIONS: I will suggest seeing how he does tomorrow with physical therapy. If he does not feel better, then he will need pretty extensive workup of the spine and brain but only part of it can be done here and we do not have as mentioned EMG, etc. in this patient. I discussed all of it with the patient and the patient wants to follow this plan and we will follow this plan and check on him tomorrow again. <ELECTRONICALLY SIGNED> By: Gerardo Kimbrough MD 08/18/17 0721 1919 0017 Gerardo Kimbrough MD /nt
[2017-08-13 12:03] VITALS: BP 154/77
[2017-08-13 13:12] LABS: BASOPHILS 0.7 % (0.0-2.0); EOSINOPHILS 0.1 % (0.0-3.0); HEMATOCRIT 40.8 % (42.0-52.0); HEMOGLOBIN 13.4 gm/dL (14.0-18.0); LYMPHOCYTES 4.9 % (24.0-44.0); MCH 27.7 pg (26.0-34.0); MCHC 32.9 g/dL (28.0-37.0); MCV 84.2 fL (80.0-100.0); MONOCYTES 7.3 % (1.0-8.0); PLATELET COUNT 441 thou/uL (150-400); RBC 4.84 mil/uL (4.50-6.00); RDW 15.8 % (10.5-14.5); WBC 18.3 thou/uL (4.0-11.0)
[2017-08-13 13:25] LABS: ANION GAP 11 mmol/L (7-16); BUN 38 mg/dL (7-18); CALCIUM 9.4 mg/dL (8.5-10.1); CHLORIDE 105 mmol/L (98-107); CO2 27 mmol/L (21-32); CREATININE 1.1 mg/dL (0.7-1.3); GLUCOSE 168 mg/dL (74-106); POTASSIUM 4.1 mmol/L (3.5-5.1); SODIUM 143 mmol/L (136-145)
[2017-08-13 13:39] LABS: URINE BLOOD 2+ (Negative); URINE CLARITY CLEAR; URINE COLOR YELLOW; URINE GLUCOSE-RANDOM* NEGATIVE (Negative); URINE KETONES 1+ (Negative); URINE LEUKOCYTES NEGATIVE (Negative); URINE NITRITE NEGATIVE (Negative); URINE PROTEIN (DIPSTICK) 1+ (Negative); URINE SPECIFIC GRAVITY >= 1.030 (1.005-1.035); URINE UROBILINOGEN 0.2 E.U./dl (0.2-1.0)
[2017-08-13 13:39] LABS: ALBUMIN 3.9 g/dL (3.4-5.0); SGOT 216 U/L (15-37); SGPT 142 U/L (30-65); TOTAL BILIRUBIN 0.6 mg/dL (<0.1-1.0); TOTAL PROTEIN 7.6 g/dL (6.4-8.2); TROPONIN-I < 0.04 ng/mL (<0.06)
[2017-08-13 13:43] LABS: URINE BILIRUBIN NEGATIVE (Negative)
[2017-08-13 13:48] LABS: SQUAMOUS None Seen /LPF (0-3)
[2017-08-13 13:49] LABS: BACTERIA 1-9 Few /HPF (None Seen); CRYSTALS None Seen /LPF (None Seen); HYALINE CASTS 0-3 Few /LPF (None Seen); URINE RBC 0-2 Rare /HPF (0-2); URINE WBC 0-5 Rare /HPF (0-5)
[2017-08-13 13:50] LABS: YEAST Present (None Seen)
[2017-08-13 15:05] VITALS: BP 172/75
[2017-08-13 15:07] LABS: CHOLESTEROL 242 mg/dL (<200); HDL CHOLESTEROL 37 mg/dL (>40); LDL CHOLESTEROL 167 mg/dL (<100); TC:HDL 6.5 Ratio (Not establshd); TRIGLYCERIDE 193 mg/dL (<150); VLDL 39 mg/dL (<40)
[2017-08-13 15:09] LABS: SERUM ASSESSMENT Clear
[2017-08-13 15:32] LABS: TSH 0.717 uIU/mL (0.358-3.740)
[2017-08-13 16:06] LABS: FOLIC ACID > 40.0 ng/mL (8.6-58.9)
[2017-08-13 16:25] VITALS: BP 118/59
[2017-08-13 17:05] VITALS: BP 155/78
[2017-08-13 20:05] VITALS: BP 169/61
[2017-08-14 00:01] VITALS: BP 141/79
[2017-08-14 03:24] VITALS: BP 141/79
[2017-08-14 03:40] VITALS: BP 152/89
[2017-08-14 05:31] LABS: ABSOLUTE NEUTROPHILS 12.1 thou/uL (1.4-8.2); BASOPHILS 0.1 % (0.0-2.0); EOSINOPHILS 0.3 % (0.0-3.0); HEMATOCRIT 37.5 % (42.0-52.0); HEMOGLOBIN 12.2 gm/dL (14.0-18.0); LYMPHOCYTES 9.3 % (24.0-44.0); MCH 27.7 pg (26.0-34.0); MCHC 32.5 g/dL (28.0-37.0); MCV 85.1 fL (80.0-100.0); MONOCYTES 9.6 % (1.0-8.0); PLATELET COUNT 420 thou/uL (150-400); POLYS 80.7 % (36.0-66.0); RBC 4.41 mil/uL (4.50-6.00)
[2017-08-14 05:33] LABS: CALCIUM 8.8 mg/dL (8.5-10.1); CREATININE 0.9 mg/dL (0.7-1.3); POTASSIUM 3.9 mmol/L (3.5-5.1)
[2017-08-14 07:15] VITALS: BP 176/91
[2017-08-14 15:45] VITALS: BP 161/78
[2017-08-14 20:50] VITALS: BP 148/71
[2017-08-15 00:58] VITALS: BP 148/71
[2017-08-15 04:00] VITALS: BP 182/68
[2017-08-15 04:29] LABS: HEMATOCRIT 35.1 % (42.0-52.0); HEMOGLOBIN 11.5 gm/dL (14.0-18.0); MCHC 32.8 g/dL (28.0-37.0); MCV 85.4 fL (80.0-100.0); RBC 4.11 mil/uL (4.50-6.00); RDW 15.9 % (10.5-14.5); WBC 9.8 thou/uL (4.0-11.0)
[2017-08-15 04:47] LABS: CALCIUM 8.5 mg/dL (8.5-10.1); CREATININE 0.9 mg/dL (0.7-1.3); POTASSIUM 3.4 mmol/L (3.5-5.1)
[2017-08-15 07:30] VITALS: BP 159/86
[2017-08-15 08:02] VITALS: BP 157/85
[2017-08-15 17:14] VITALS: BP 148/82
[2017-08-15 20:30] VITALS: BP 159/78
[2017-08-16 04:30] VITALS: BP 155/65
[2017-08-16 04:45] LABS: HEMATOCRIT 37.7 % (42.0-52.0); HEMOGLOBIN 12.1 gm/dL (14.0-18.0); MCH 27.4 pg (26.0-34.0); MCHC 32.2 g/dL (28.0-37.0); MCV 85.2 fL (80.0-100.0); RBC 4.42 mil/uL (4.50-6.00); RDW 16.1 % (10.5-14.5); WBC 13.9 thou/uL (4.0-11.0)
[2017-08-16 05:12] LABS: CALCIUM 8.9 mg/dL (8.5-10.1); CREATININE 0.8 mg/dL (0.7-1.3); POTASSIUM 3.3 mmol/L (3.5-5.1)
[2017-08-16 07:58] VITALS: BP 142/64
[2017-08-16 09:00] VITALS: BP 142/64
[2017-08-16 15:16] VITALS: BP 102/47
[2017-08-16 17:42] LABS: ABSOLUTE NEUTROPHILS 14.1 thou/uL (1.4-8.2); BASOPHILS 0.2 % (0.0-2.0); EOSINOPHILS 0.5 % (0.0-3.0); HEMATOCRIT 37.2 % (42.0-52.0); HEMOGLOBIN 11.9 gm/dL (14.0-18.0); LYMPHOCYTES 6.2 % (24.0-44.0); MCH 27.4 pg (26.0-34.0); MCV 85.6 fL (80.0-100.0); MONOCYTES 7.8 % (1.0-8.0); PLATELET COUNT 314 thou/uL (150-400); POLYS 85.3 % (36.0-66.0); RBC 4.34 mil/uL (4.50-6.00); RDW 15.7 % (10.5-14.5); WBC 16.6 thou/uL (4.0-11.0)
[2017-08-16 17:47] LABS: URINE BILIRUBIN NEGATIVE (Negative); URINE BLOOD NEGATIVE (Negative); URINE CLARITY CLEAR; URINE COLOR YELLOW; URINE GLUCOSE-RANDOM* NEGATIVE (Negative); URINE KETONES NEGATIVE (Negative); URINE LEUKOCYTES-REFLEX NEGATIVE (Negative); URINE NITRITE-REFLEX NEGATIVE (Negative); URINE PROTEIN (DIPSTICK) NEGATIVE (Negative); URINE UROBILINOGEN 0.2 E.U./dl (0.2-1.0)
[2017-08-16 17:48] LABS: ANION GAP 7 mmol/L (7-16); BUN 14 mg/dL (7-18); CALCIUM 8.8 mg/dL (8.5-10.1); CHLORIDE 105 mmol/L (98-107); CO2 29 mmol/L (21-32); CREATININE 0.9 mg/dL (0.7-1.3); GLUCOSE 185 mg/dL (74-106); POTASSIUM 4.1 mmol/L (3.5-5.1); SODIUM 141 mmol/L (136-145)
[2017-08-16 17:56] LABS: ALBUMIN 2.9 g/dL (3.4-5.0); SGOT 36 U/L (15-37); SGPT 99 U/L (30-65); TOTAL BILIRUBIN 0.5 mg/dL (<0.1-1.0); TOTAL PROTEIN 6.3 g/dL (6.4-8.2); TROPONIN-I < 0.04 ng/mL (<0.06)
[2017-08-16 21:24] LABS: BE(vivo) 2.9 mmol/L (-2 to +3); HCO3 28.1 mmol/L (22.0-26.0); PCO2 45.2 mmHg (35.0-45.0); PO2 59.3 mmHg (80.0-100.0); pH 7.411 (7.360-7.450); sO2 90.8 % (92.0-98.0)
[2017-08-16 22:30] VITALS: BP 131/82
[2017-08-16 23:36] VITALS: BP 134/75
[2017-08-17 04:16] VITALS: BP 135/73
[2017-08-17 05:45] LABS: ABSOLUTE NEUTROPHILS 14.4 thou/uL (1.4-8.2); BASOPHILS 0.1 % (0.0-2.0); EOSINOPHILS 0.1 % (0.0-3.0); HEMATOCRIT 40.4 % (42.0-52.0); HEMOGLOBIN 12.9 gm/dL (14.0-18.0); LYMPHOCYTES 6.4 % (24.0-44.0); MCH 27.3 pg (26.0-34.0); MCHC 31.9 g/dL (28.0-37.0); MCV 85.6 fL (80.0-100.0); MONOCYTES 8.8 % (1.0-8.0); PLATELET COUNT 341 thou/uL (150-400); POLYS 84.6 % (36.0-66.0); RBC 4.72 mil/uL (4.50-6.00); RDW 16.5 % (10.5-14.5)
[2017-08-17 06:00] LABS: CALCIUM 9.2 mg/dL (8.5-10.1); CREATININE 1.1 mg/dL (0.7-1.3); POTASSIUM 3.6 mmol/L (3.5-5.1)
[2017-08-17 07:33] VITALS: BP 135/76
[2017-08-17 12:02] VITALS: BP 153/80
[2017-08-17 15:47] VITALS: BP 145/81
[2017-08-17 20:00] VITALS: BP 156/81
[2017-08-18 04:00] VITALS: BP 177/85
[2017-08-18 06:26] LABS: BASOPHILS 0.4 % (0.0-2.0); EOSINOPHILS 0.4 % (0.0-3.0); HEMATOCRIT 39.7 % (42.0-52.0); HEMOGLOBIN 12.3 gm/dL (14.0-18.0); LYMPHOCYTES 8.4 % (24.0-44.0); MCH 26.8 pg (26.0-34.0); MCV 86.5 fL (80.0-100.0); MONOCYTES 9.4 % (1.0-8.0); PLATELET COUNT 383 thou/uL (150-400); POLYS 81.4 % (36.0-66.0); RBC 4.59 mil/uL (4.50-6.00); RDW 16.7 % (10.5-14.5); WBC 14.7 thou/uL (4.0-11.0)
[2017-08-18 06:37] LABS: CALCIUM 9.5 mg/dL (8.5-10.1); POTASSIUM 3.7 mmol/L (3.5-5.1)
[2017-08-18 08:24] VITALS: BP 161/91
[2017-08-18 12:05] VITALS: BP 179/98
[2017-08-18 15:21] LABS: BE(vivo) 5.8 mmol/L (-2 to +3); HCO3 31.1 mmol/L (22.0-26.0); PCO2 47.8 mmHg (35.0-45.0); PO2 89.7 mmHg (80.0-100.0); pH 7.431 (7.360-7.450)
[2017-08-18 17:29] VITALS: BP 182/92
[2017-08-18 20:05] VITALS: BP 189/85
[2017-08-19] VITALS (8 sets, daily range): BP systolic 166–185; BP diastolic 60–88
[2017-08-19 06:21] LABS: HEMATOCRIT 39.1 % (42.0-52.0); HEMOGLOBIN 12.3 gm/dL (14.0-18.0); MCH 27.3 pg (26.0-34.0); MCHC 31.4 g/dL (28.0-37.0); MCV 86.9 fL (80.0-100.0); PLATELET COUNT 439 thou/uL (150-400); RBC 4.49 mil/uL (4.50-6.00); RDW 16.4 % (10.5-14.5); WBC 14.8 thou/uL (4.0-11.0)
[2017-08-19 06:43] LABS: CALCIUM 9.3 mg/dL (8.5-10.1); POTASSIUM 3.7 mmol/L (3.5-5.1)
[2017-08-19 07:49] LABS: ABSOLUTE NEUTROPHILS 12.3 thou/uL (1.4-8.2); ANISOCYTOSIS 1+
[2017-08-19 07:51] LABS: BE(vivo) 2.8 mmol/L (-2 to +3); PCO2 45.6 mmHg (35.0-45.0); PO2 75.5 mmHg (80.0-100.0); pH 7.406 (7.360-7.450); sO2 95.1 % (92.0-98.0)
[2017-08-19 15:09] LABS: BE(vivo) 5.6 mmol/L (-2 to +3); HCO3 30.7 mmol/L (22.0-26.0); PCO2 46.3 mmHg (35.0-45.0); PO2 77.1 mmHg (80.0-100.0); pH 7.439 (7.360-7.450); sO2 95.7 % (92.0-98.0)
[2017-08-20 04:15] VITALS: BP 165/81
[2017-08-20 06:48] LABS: HEMATOCRIT 37.4 % (42.0-52.0); HEMOGLOBIN 11.9 gm/dL (14.0-18.0); MCH 27.3 pg (26.0-34.0); MCHC 31.8 g/dL (28.0-37.0); MCV 85.9 fL (80.0-100.0); PLATELET COUNT 390 thou/uL (150-400); RBC 4.36 mil/uL (4.50-6.00); RDW 16.7 % (10.5-14.5); WBC 13.1 thou/uL (4.0-11.0)
[2017-08-20 06:50] LABS: CALCIUM 8.9 mg/dL (8.5-10.1); CREATININE 0.9 mg/dL (0.7-1.3); POTASSIUM 3.5 mmol/L (3.5-5.1)
[2017-08-20 08:05] VITALS: BP 176/76
[2017-08-20 09:37] LABS: ABSOLUTE NEUTROPHILS 10.9 thou/uL (1.4-8.2); PLATELET ESTIMATE NORMAL
[2017-08-20 11:35] VITALS: BP 166/75
[2017-08-20 17:13] VITALS: BP 159/86
[2017-08-20 20:00] VITALS: BP 164/75
[2017-08-21 03:58] LABS: HEMOGLOBIN 11.3 gm/dL (14.0-18.0); MCH 27.6 pg (26.0-34.0); MCHC 32.2 g/dL (28.0-37.0); MCV 85.7 fL (80.0-100.0); PLATELET COUNT 329 thou/uL (150-400); RBC 4.08 mil/uL (4.50-6.00); RDW 16.3 % (10.5-14.5)
[2017-08-21 04:00] VITALS: BP 165/90
[2017-08-21 04:01] LABS: CALCIUM 8.5 mg/dL (8.5-10.1); CREATININE 0.9 mg/dL (0.7-1.3); POTASSIUM 3.2 mmol/L (3.5-5.1)
[2017-08-21 06:09] LABS: ABSOLUTE NEUTROPHILS 9.8 thou/uL (1.4-8.2); ANISOCYTOSIS 1+
[2017-08-21 07:40] VITALS: BP 169/86
[2017-08-21 11:30] VITALS: BP 167/80
[2017-08-21 16:01] VITALS: BP 143/64
[2017-08-21 19:24] VITALS: BP 142/72
[2017-08-21 22:07] LABS: ADENOVIRUS Negative (Negative); INFLUENZA A Negative (Negative); INFLUENZA B Negative (Negative); METAPNEUMOVIRUS Negative (Negative); PARAINFLUENZA 1 Negative (Negative); PARAINFLUENZA 2 Negative (Negative); PARAINFLUENZA 3 Negative (Negative); RHINOVIRUS Negative (Negative); RSV A Negative (Negative); RSV B Negative (Negative)
[2017-08-22 04:20] VITALS: BP 185/91
[2017-08-22 07:35] VITALS: BP 151/74
[2017-08-22] MEDS ORDERED: XANAX 0.5 MG0.5 MG PO (11:48)
[2017-08-22 16:25] VITALS: BP 197/93
[2017-08-22 19:10] VITALS: BP 143/63
[2017-08-23 04:40] VITALS: BP 160/84
[2017-08-23 06:13] LABS: ABSOLUTE NEUTROPHILS 6.9 thou/uL (1.4-8.2); BASOPHILS 0.7 % (0.0-2.0); EOSINOPHILS 4.6 % (0.0-3.0); HEMATOCRIT 35.8 % (42.0-52.0); HEMOGLOBIN 11.7 gm/dL (14.0-18.0); LYMPHOCYTES 15.5 % (24.0-44.0); MCH 27.6 pg (26.0-34.0); MCHC 32.6 g/dL (28.0-37.0); MCV 84.6 fL (80.0-100.0); PLATELET COUNT 371 thou/uL (150-400); POLYS 72.2 % (36.0-66.0); RBC 4.23 mil/uL (4.50-6.00); RDW 15.8 % (10.5-14.5); WBC 9.5 thou/uL (4.0-11.0)
[2017-08-23 06:28] LABS: CALCIUM 8.6 mg/dL (8.5-10.1); CREATININE 0.8 mg/dL (0.7-1.3); POTASSIUM 3.4 mmol/L (3.5-5.1)
[2017-08-23 07:28] VITALS: BP 178/87
[2017-08-23 11:31] VITALS: BP 151/89
[2017-08-23 16:20] VITALS: BP 160/81
[2017-08-23 18:53] VITALS: BP 182/71
[2017-08-23 23:44] VITALS: BP 178/69
[2017-08-24 03:31] VITALS: BP 184/93
[2017-08-24 07:12] LABS: BE(vivo) 3.1 mmol/L (-2 to +3); HCO3 27.6 mmol/L (22.0-26.0); PCO2 41.7 mmHg (35.0-45.0); PO2 75.2 mmHg (80.0-100.0); pH 7.438 (7.360-7.450); sO2 95.5 % (92.0-98.0)
[2017-08-24] MEDS ORDERED: AUGMENTIN 875-1 EACH PO (08:14)
[2017-08-24 08:24] VITALS: BP 173/89
[2017-08-24 13:26] VITALS: BP 170/85
[2017-08-24 18:08] VITALS: BP 165/82
[2017-08-25 00:20] VITALS: BP 152/63
[2017-08-25 04:00] VITALS: BP 128/73
[2017-08-25 08:14] VITALS: BP 182/78
[2017-08-25 12:17] VITALS: BP 182/78
[2017-08-25 12:40] VITALS: BP 162/62
== END 2017-08-25 18:21 | DRG 177 ==
LOC: ER 12:03 → 4E 14:13 → 3W 14:13 → EROBS 14:13 → 4E 16:26 → 3W 08-16 22:36
PROVIDERS: Family Medicine; Hospitalist; Internal Medicine Pulmonary Disease; Nurse Practitioner; Nurse Practitioner Acute Care; Physician Assistant; Specialist
PROC: 5A09457 Assistance with Respiratory Ventilation, 24-96 Consecutive Hours, Continuous Positive Airway Pressure (ICD-10-PCS; principal; 2017-08-16)
PROC: B24BZZ4 Ultrasonography of Heart with Aorta, Transesophageal (ICD-10-PCS; 2017-08-18)
PROC: 5A09357 Assistance with Respiratory Ventilation, Less than 24 Consecutive Hours, Continuous Positive Airway Pressure (ICD-10-PCS; 2017-08-20)
DX: J69.0 Pneumonitis due to inhalation of food and vomit (principal); G93.40 Encephalopathy, unspecified; J96.01 Acute respiratory failure with hypoxia; M62.82 Rhabdomyolysis; Z68.41 Body mass index [BMI] 40.0-44.9, adult; F31.30 Bipolar disorder, current episode depressed, mild or moderate severity, unspecified; R29.6 Repeated falls; E11.9 Type 2 diabetes mellitus without complications; D47.3 Essential (hemorrhagic) thrombocythemia; Z66 Do not resuscitate; I10 Essential (primary) hypertension; E86.0 Dehydration; G20 Parkinson's disease; M54.9 Dorsalgia, unspecified; G89.29 Other chronic pain; I25.10 Atherosclerotic heart disease of native coronary artery without angina pectoris; F02.80 Dementia in other diseases classified elsewhere, unspecified severity, without behavioral disturbance, psychotic disturbance, mood disturbance, and anxiety; E66.9 Obesity, unspecified; Z95.1 Presence of aortocoronary bypass graft; Z87.891 Personal history of nicotine dependence; Z79.82 Long term (current) use of aspirin; Z79.84 Long term (current) use of oral hypoglycemic drugs; Z79.899 Other long term (current) drug therapy; Z88.5 Allergy status to narcotic agent; Z88.8 Allergy status to other drugs, medicaments and biological substances; Z82.49 Family history of ischemic heart disease and other diseases of the circulatory system; Z80.8 Family history of malignant neoplasm of other organs or systems
CPT/HCPCS: 10183; 10879

== ENCOUNTER 2019-08-28 14:39 | Inpatient (IN) | payer OTHER ==
[~2019-08-28] VITALS: Ht 172.7 cm; Wt 98.5 kg
--- NOTE | ~2019-08-28 | EEG ---
[facility] [place] [address] ELECTROENCEPHALOGRAM Name: JADE HARRIS Room #: 360-P [facility] IN M.R.#: [id number] Admission: 08/28/19 Attend Phys: Wally Seals MD Discharge: Date of : 50 Report #: [id number] THIS REPORT FOR: //name// CC: Wally Rodriguez DATE OF SERVICE: 08/29/2019 The patient is being evaluated for altered mental status. EEG was done by placing the electrode by standard 10-20 system of electrode placement. Both referential and sequential montages were used for recording. Background activity in this patient's EEG is somewhat intermixed with theta range slowing on both sides, but does go up to about 8-9 Hz. Photic stimulation is unremarkable. The patient became drowsy and that is associated with bilateral slowing. Throughout the record, no active epileptiform activity was noticed. IMPRESSION: This patient's EEG is moderately intermixed with theta range slowing on both sides. That is a nonspecific finding, which can occur with dementia, encephalopathy, effect of psychotropic medication, etc. Clinical correlation is recommended. By: [id number] Gerardo Ramey MD /nt
[~2019-08-28 14:39] MED LIST changes: +AUGMENTIN 875-1 EACH PO
[2019-08-28] MEDS ORDERED: MIRALAX119 GM PO (15:32)
[2019-08-28] MEDS ORDERED: LANTUS SUBQ (15:34)
[2019-08-28] MEDS ORDERED: FLUCONAZOLE 10100 MG PO (15:35)
[2019-08-28] MEDS ORDERED: ATORVASTATIN CA20 MG PO (15:37)
[2019-08-28] MEDS ORDERED: ZOCOR 10 MG TAB10 MG PO (15:38)
[2019-08-28] MEDS ORDERED: TIZANIDINE HCL 22 M1 PO (15:41)
[2019-08-28] MEDS ORDERED: ARICEPT10 M1 PO (15:43)
--- NOTE | 2019-08-28 17:49 | NUR ---
PT ARRIVED AT 1509 VIA EMS FROM [facility]. PT ALERT TO SELF AND TIME, PT IS OFF ON SITUATION BUT AWARE HE IS IN THE HOSPITAL. PT STATES HE WAS FOUND NON RESPONSIVE AT HOME. HOWEVER, PT'S EX- PARAMJIT WHO LIVES WITH HIM ARRIVED LATER AND STATED THAT SHE WAS CHANGING PT'S CLOTHES FROM BEING WET WHEN HE ALL OF A SUDDEN BECAME VERY STIFF AND SHE STATES HIS EYES ROLLED IN THE BACK OF HIS HEAD AND HE BEGAN FOAMING AT THE MOUTH. PT STATES HE HAS NO PREVIOUS SEIZURE ACTIVITY. PT HAS WOUND TO SACRAL TO COCCYX AREA THAT IS REDDENED AND HAS A CENTER LIGHT PINK SPOT THAT IS APPROXIMATELY THE SIZE OF A ISAEL. DR GRANT WAS HERE IN ROOM AND OBSERVED PT'S SKIN AND STATED HE BELIEVES IT LOOKS MORE LIKE YEAST THAN A PRESSURE WOUND. PT'S EX- STATES THE AREA IS AN OLD PRESSURE WOUND THAT HAS HAD CHAFFING AROUND THE SITE FOR A FEW WEEKS. BARRIER CREAM APPLIED AND FOAM DRESSING APPLIED. WOUND CARE CONSULTED AND PICTURES PLACED ON CHART. PT ALSO HAS RED MOIST AREA TO PANUS. DR GRANT STATES HE BELIEVES IT LOOKS LIKE YEAST WELL. SITE CLEANED AND INTERDRY PLACED TO FOLDS. PT IS A FALL RISK AND USES CANE AT HOME. FAMILY STATES PT HAS BEEN VERY WEAK FOR SEVERAL WEEKS WITH LITTLE TO NO AMBULATION. PT ABLE TO SIGN HIS OWN CONSENTS.SIDE RAILS PADDED. CONSULT CALLED TO NEUROLOGY. MRI ORDER AND EEG ORDERED FOR AM. SCD'D APPLIED. PT HAD HIGH BLOOD SUGAR OF >500 AT [facility] AND WAS GIVEN 2L IV FLUID. PT'S SUGAR 291 UPON ARRIVAL TO [facility]. PT STARTED ON MECHANICAL GROUND CARB CONTROLLED DIET, PT HAS NO TEETH AND TROUBLE CHEWING PER FAMILY.
[2019-08-28] MEDS ORDERED: NORCO 10-325 T1 EACH PO (18:20)
--- NOTE | 2019-08-28 18:36 | NUR ---
SEPTEMBER SAROJ- [phone]. LIVES WITH PATIENT AND IS EX- MELVI HARRIS- [phone]. LIVES WITH PATIENTS AND IS 14 YEAR OLD DAUGHTER AND SEPTEMBER ABOVE IS HER MOTHER AND PATIENT IS HER FATHER. ANA LEY- [phone]. ADULT GRANDDAUGHTER DOES NOT LIVE WITH PATIENT.
[2019-08-28 19:45] VITALS: BP 139/73
[2019-08-28 23:36] VITALS: BP 131/66
[2019-08-29 04:20] VITALS: BP 122/63
[2019-08-29 05:30] LABS: HEMATOCRIT 34.3 % (42.0-52.0); MCH 26.9 pg (26.0-34.0); MCHC 32.1 g/dL (28.0-37.0); MCV 83.9 fL (80.0-100.0); RBC 4.09 mil/uL (4.50-6.00); RDW 15.3 % (10.5-14.5); WBC 7.7 thou/uL (4.0-11.0)
[2019-08-29 05:36] LABS: CALCIUM 8.4 mg/dL (8.5-10.1); CREATININE 0.8 mg/dL (0.7-1.3); POTASSIUM 3.3 mmol/L (3.5-5.1)
--- NOTE | 2019-08-29 05:40 | NUR ---
Received report from offgoing RN and assumed patient care. Patient is oriented and no further signs of seizure activity was noted. Patient noted to have redness to the sacrum and coccyx and was encouraged to turn. However, he refused a couple of times to turn. Family updated on care plan and all questions were answered.
--- NOTE | 2019-08-29 07:57 | NUR ---
0700 Received report from Yoana TARIQ patient resting in bed.
[2019-08-29 08:28] VITALS: BP 155/84
--- NOTE | 2019-08-29 09:55 | NUR ---
Nutrition: pt admit following seizure at home. PMH: DM2, CAD, CABG, dementia. BG 224-245. Eating very well, 85-100% of meals so far on Carb controlled mechanically altered ground diet, hx dysphagia, chewing difficulty. Pt reports a gradual weight loss of 53#, 20% over the past 2 years. Not significant and favorable, current BMI remains 33 class 1 obesity. Usual appetite is fair and pt feels he is eating better here than usual. Wound indication on coccyx is thought to be related to yeast rather than pressure. RD encouraged adequate protein foods. Consider pt to be low risk.
[2019-08-29 15:34] VITALS: BP 150/77
--- NOTE | 2019-08-29 16:50 | NUR ---
INITIAL ASSESSMENT: SW reviewed chart and spoke with nursing and attending physician. Pt was admitted from home due to AMS/seizure activity. Neuro consulted. Pt to have EEG today. Therapy ordered to evaluate pt for recommendation for disposition. SHELBIE met with pt at bedside. Introduced role of SW. Pt is alert/orientated. Pt states that he lives in a mobile home with his ex- and their teenage dtr, who is homeschooled. 3 steps to enter the home. No steps inside. Pt has been to [facility] in the past for rehab. Pt denies having HH services in the past. Pt's PCP is Dr. Dena Rodriguez. SW discussed possible need for post-acute placement at time of discharge. SW provided pt with list of in-network SNFs for review. Pt requested SW contact his ex-, September, to provide update. SHELBIE left voice message for September ([phone]). SHELBIE is following to assist as needed with discharge planning.
--- NOTE | 2019-08-29 18:30 | NUR ---
Patient has ambulated with PT and back and forth from bed to chair. He sat up for most of the day took his medications without difficulty. States he is ready to go home.
[2019-08-29 19:09] VITALS: BP 135/64
--- NOTE | 2019-08-30 04:10 | NUR ---
Patient making slow progress towards outcome goals. Forgetful, incontinent of urine. Does not remember to call for assistance when getting out of bed. Buttocks decub appears healing, skin barrier applied. Interdry applied to panus. High fall riskd. Fall precautions in place.
[2019-08-30 04:16] VITALS: BP 130/63
[2019-08-30 07:18] VITALS: BP 157/82
--- NOTE | 2019-08-30 07:32 | NUR ---
0705 Report recieved from Cesia TARIQ Patient resting in bed at this time. 0733 Bed alarm went off patient states he is trying to sit on the side of the bed. Assisted up to the chair for breakfast at this time.
--- NOTE | 2019-08-30 08:51 | NUR ---
Patient took am medications without difficutly ate 100% of breakfast.
--- NOTE | 2019-08-30 11:27 | NUR ---
WOUND CONSULT; ASSESSMENT OF THE COCCYX AREA REVEALED AND UNSTAGEABLE PRESSURE ULCER TO THE COCCYX WHICH IS COVERED WITH SLOUGH. NON TENDER AND NO S/S OF INFECTION. RECOMMENDATIONS; ZGUARD TO WOUND BED BID RN PRESENT
--- NOTE | 2019-08-30 13:42 | NUR ---
Patient back in bed resting quietly laying on his right sight watching TV, call light with in reach.
--- NOTE | 2019-08-30 14:25 | NUR ---
patient is sitting on the side of the bed his daughter Dayami is at the bedside. He had been incontinent of urine. The daughter just called because the patient was getting up again he was assisted to the chair at this time.
[2019-08-30 15:30] VITALS: BP 143/75
--- NOTE | 2019-08-30 15:33 | NUR ---
SW reviewed chart and spoke with nursing and attending physician. Pt is progressing towards goals for discharge. Recommendation made for pt to go to post-acute care for continued rehab services and med mgmt.. SHELBIE met with pt and dtr, Dayami, at bedside. Pt's dtr states that pt has been to [facility] in the past. SW explained that pt's insurance is not in-network with [facility] ([place], [place]). SHELBIE spoke with pt's granddtr, Zaynab, via phone to discuss placement. SNFs reviewed with Zaynab and pt's ex-, September. Request for referral to be sent to [facility] due to location. SHELBIE faxed SNF referral and notified post-acute liaison. Awaiting input at this time. SHELBIE is following to assist as needed with discharge planning.
--- NOTE | 2019-08-30 17:48 | NUR ---
Spoke with Karin this afternoon in regards to patients discharge. Dayami was in the patients room and had her on the phone the patient stated it was ok to talk to her. I went over what wound care had discussed with her and asked her to please share this information with her family instead of all of them calling.
[2019-08-30 19:15] VITALS: BP 152/82
[2019-08-31 04:34] VITALS: BP 155/73
--- NOTE | 2019-08-31 06:34 | NUR ---
ASSUMED CARE AT 1900, ASSESSMENT COMPLETED. PT IMPULSIVE AND TRYING TO GET OUT OF BED MULTIPLE TIMES, FORGETS TO CALL FOR HELP; SAT IN CHAIR FOR SEVERAL HOURS BEFORE GOING BACK TO BED. DENIED PAIN, SOB, OR NAUSEA. APPLIED Z-GUARD TO SACRUM TO HEALING SORE. PLAN FOR D/C TO SNF TODAY, NO OTHER CONCERNS, WILL CONTINUE TO MONITOR.
[2019-08-31 08:10] VITALS: BP 151/80
--- NOTE | 2019-08-31 14:15 | NUR ---
SHELBIE reviewed chart and spoke with nursing and attending physician. Pt is progressing towards goals for discharge. [facility] SNF submitted for insurance authorization. SHELBIE faxed clinical and therapy updates this morning to [facility] post-acute liaison for review. SHELBIE spoke with pt's dtr, Zaynab, via phone to provide update. Pt's family states pt does still need rehab prior to returning home. SHELBIE explained that if insurance should deny SNF, pt could have HH services. Pt's dtr verbalized understanding and is agreeable. Options discussed for HH agencies. No preference voiced. SHELBIE faxed HH referral to [facility]. Notified liaison of new referral. SHELBIE is following to assist as needed with discharge planning.
[2019-08-31 16:17] VITALS: BP 134/78
--- NOTE | 2019-08-31 18:56 | NUR ---
PT A&OX3, CONFUSED AT TIMES. IV INTACT IN R AC. PT IS COMPULSIVE DOES NOT CALL WHEN GEETING UP. INCONT. OF BLADDER SEVERAL TIMES TODAY. CONDOM CATH PLACED. FAMILY AT BEDSIDE.
[2019-09-01 03:56] VITALS: BP 148/59
--- NOTE | 2019-09-01 05:06 | NUR ---
PATIENT TRANSFERRED TO [facility] FROM RM 360 AROUNF 1900. PATIENT ALERT AND ORIENTED X4 BUT FORGETFUL AND IMPULSIVE. CONDOM CATH IN PLACE. ACCUCHECK WAS 250, RECIEVED 20 UNITS GLARGINE AND 4 UNITS LISPRO INSULIN. DENIES PAIN. SLEPT LITTLE THIS SHIFT.
[2019-09-01 07:40] VITALS: BP 134/64
--- NOTE | 2019-09-01 12:15 | NUR ---
DISCHARGE NOTE: SHELBIE reviewed chart and spoke with nursing and attending physician. Pt is medically stable for discharge to [facility] today. SHELBIE notified by [facility] post acute liaison that insurance has provided authorization. Facility can accept pt today. Wheelchair van transportation scheduled for [phone] per facility's arrangements. SHELBIE spoke with pt's dtr, Zaynab, to provide update. Zaynab is aware and agreeable with plan. SHELBIE updated pt's nurse and provided number for report. Pt updated by nursing staff of discharge, as pt was in the shower during SW visit. Chart copy requested. maintenance planner to fax finalized discharge orders/summary and [id number] form to [facility]. No additional SW needs identified at this time, but is available to assist should needs arise.
--- NOTE | 2019-09-01 15:10 | NUR ---
VSS-AFEBRILE. LUNGS CLEAR/DIMINSHED IN ALL DOW BILATERALLY. TOTAL BATH GIVEN BEFORE DC TO REHAB. NO REPORTED PAIN. REPORT CALLED TO [facility]. DRESSED, FINISHED LUNH, DISCHARGED WITH ALL PERSONAL BELONGINGS. PATIENT LEFT WITH TRANSPORTATION SERVICE IN WHEELCHAIR. EX SPOUSE LEFT HOSPITAL WITH PATIENT.
== END 2019-09-01 13:00 | DRG 72 ==
LOC: 3W 14:39 → 4S 08-31 20:47
PROVIDERS: ADMIT Hospitalist
DX: G93.40 Encephalopathy, unspecified (principal); I25.10 Atherosclerotic heart disease of native coronary artery without angina pectoris; I10 Essential (primary) hypertension; E78.5 Hyperlipidemia, unspecified; F03.90 Unspecified dementia, unspecified severity, without behavioral disturbance, psychotic disturbance, mood disturbance, and anxiety; E87.6 Hypokalemia; R25.1 Tremor, unspecified; E11.65 Type 2 diabetes mellitus with hyperglycemia; L89.90 Pressure ulcer of unspecified site, unspecified stage; Z88.6 Allergy status to analgesic agent; Z88.8 Allergy status to other drugs, medicaments and biological substances; Z79.899 Other long term (current) drug therapy; Z95.1 Presence of aortocoronary bypass graft; Z82.49 Family history of ischemic heart disease and other diseases of the circulatory system; Z80.9 Family history of malignant neoplasm, unspecified; Z87.891 Personal history of nicotine dependence; Z79.82 Long term (current) use of aspirin
CPT/HCPCS: 10195; 10879

== ENCOUNTER 2019-09-06 08:31 | Emergency (ER) | payer OTHER ==
[~2019-09-06] VITALS: Ht 172.7 cm; Wt 101.2 kg
--- NOTE | ~2019-09-06 | EMS ---
[address] [address] EMS Patient Care Report Name: JADE HARRIS Room #: REG MODE Reina#: [id number] Admission: 09/06/19 Attend Phys: Discharge: Date of : 50 Report #: [id number] THIS REPORT FOR: //name// Report Transmitted: 09/06/2019 08:10 EMS Care Summary [place], [place]/[facility] Incident [id number] @ 09/06/2019 07:57 Incident Location [id number] [place] [address] Patient JADE HARRIS Male, 68 Years 1950 Patient Address [address] [place], [place] [id number] Patient History Dementia,Diabetes,Hypertension (HTN),Rhabdomyolysis, Patient Allergies Morphine, Patient Medications Fluoxetine, Atorvastatin, Alprazolam, Gabapentin, Aspirin, Aricept, Insulin, [place], Metformin, Chief Complaint FX OF L HUMERUS Disposition Transported No Lights/[place] Dispatch Reason Falls Transported To [facility] Narrative UPON ARRIVAL PT SUPINE IN BED CONSCIOUS AND ALERT. PT HAD FALLEN AT 2330 LAST NIGHT HURTING L ARM. AN X RAY WAS DONE AT THE FACILITY. RESUTS CAME BACK THIS [address] [address] EMS Patient Care Report Name: JADE HARRIS Room #: REG MODE Reina#: [id number] Admission: 09/06/19 Attend Phys: Discharge: Date of : 50 Report #: [id number] MORNING WITH A FX OF THE L HUMERUS. PT WAS GIVEN NORCO BY SHELTER. PT NOT C/O OF ANY PAIN. PT TRANSPORTED TO [facility]. Initial Vitals @08:24P: 80,BP: 124/73,GCS: 15,CO: 0,SpO2: 96, @08:16P: 77,R: 16,BP: 128/74,Pain: 0/10,GCS: 15,SpO2: 95,Revised Trauma: 12, Assessments @08:12MENTAL:Person Oriented,Time Oriented,Event Oriented,Place Oriented,SKIN:HEENT:Head/Face: No Abnormalities,LUNG SOUNDS:General: No Abnormalities,ABDOMEN:General: No Abnormalities,PELVIS//GI:No Abnormalities,EXTREMITIES:Left Arm: No Abnormalities,Right Arm: No Abnormalities,Left Leg: No Abnormalities,Right Leg: No Abnormalities,PULSE:Radial: 2+ Normal,NEURO:No Abnormalities, Impression Injury of Shoulder or Upper Arm Procedures @08:12ALS AssessmentResponse: UnchangedSucceeded Timeline 07:54,Call Received 07:54,Dispatch Notified 07:57,Dispatched 07:58,En Route 08:06,On Scene 08:10,At Patient 08:12,ALS Assessment,Response: UnchangedSucceeded, 08:16,BP: 128/74 M,PULSE: 77,RR: 16 R,SPO2: 95 Ox,ETCO2: ,BG: ,PAIN: 0,GCS: 15, 08:18,Depart Scene 08:24,BP: 124/73 M,PULSE: 80,RR: R,SPO2: 96 Ox,ETCO2: ,BG: ,PAIN: ,GCS: 15, 08:30,At Destination 08:47,Call Closed Disclaimer v1.1 Copyright 2020 [employer] This EMS Care Summary contains data elements from the applicable legal record (which may be displayed differently). It is designed to provide pertinent information for the following purposes: continuity of care, clinical quality, and state data reporting. The complete legal record is available to ED staff and administrators of the receiving hospital in [employer] Patient Tracker. All data is provided "as is."
[~2019-09-06 08:31] MED LIST changes: +ARICEPT10 M1 PO; +ATORVASTATIN CA20 MG PO; +FLUCONAZOLE 10100 MG PO; +LANTUS SUBQ; +MIRALAX119 GM PO; +TIZANIDINE HCL 22 M1 PO
[2019-09-06] MEDS ORDERED: ZOCOR 10 MG TAB10 MG PO (08:42)
[2019-09-06 10:24] VITALS: BP 124/46
== END 2019-09-06 10:24 | disposition home or self-care (01) ==
LOC: ER 08:31
DX: S42.212A Unspecified displaced fracture of surgical neck of left humerus, initial encounter for closed fracture (principal); E11.9 Type 2 diabetes mellitus without complications; I25.10 Atherosclerotic heart disease of native coronary artery without angina pectoris; I10 Essential (primary) hypertension; Z79.899 Other long term (current) drug therapy; Z79.82 Long term (current) use of aspirin; W18.39XA Other fall on same level, initial encounter; Y93.89 Activity, other specified; Y92.89 Other specified places as the place of occurrence of the external cause; Y99.8 Other external cause status